=== PATIENT | male | born 1970 | race Two or more races ===

== ENCOUNTER 2018-08-21 13:30 | Emergency (ER) | payer OTHER ==
[~2018-08-21] VITALS: Ht 170.2 cm; Wt 100.2 kg
--- NOTE | 2018-08-21 13:45 | NUR ---
PT BIB RA FROM WORK C/O N/V, HYPERGLYCEMIA, AND ALTERED MENTAL STATUS. PT IS DROWSY, ORIENTED X2 ONLY. RESP EVEN UNLABORED. SKIN WARM DRY. DENIES PAIN. IN ER BED 05 ON MONITOR. IV PRESENT FROM EMS.
[2018-08-21] MEDS ORDERED: IV NS 0.9% 1,000 ML BAG IV ONE (14:00)
[2018-08-21 14:11] LABS: BASOPHILS % (AUTO) 0.5 % (0.0-2.0); EOSINOPHILS % (AUTO) 1.8 % (0.0-6.0); HEMATOCRIT 33 % (39-51); HEMOGLOBIN 11.3 g/dL (13.5-17.5); LYMPHOCYTES # (AUTO) 1.9 /CMM (0.8-4.8); LYMPHOCYTES % (AUTO) 22.3 % (20.0-44.0); MEAN CORPUSCULAR HGB CONC 34 g/dl (31.0-36.0); MEAN CORPUSCULAR VOLUME 83 fL (80-96); MONOCYTES # (AUTO) 0.4 /CMM (0.1-1.30); MONOCYTES % (AUTO) 5.1 % (2.0-12.0); NEUTROPHILS # (AUTO) 6.1 /CMM (1.8-8.9); NEUTROPHILS % (AUTO) 70.3 % (43.0-81.0); PLATELET COUNT (AUTO) 335 /CMM (150-450); RDW COEFFICIENT OF VARIATION 12.4 (11.5-15.0); RED BLOOD CELL COUNT(AUTO) 3.99 MIL/uL (4.5-6.0); WHITE BLOOD COUNT (AUTO) 8.6 K/uL (4.3-11.0)
[2018-08-21 14:20] LABS: CALCIUM, SERUM 8.5 mg/dL (8.5-10.1); CREATININE 2.6 mg/dL (0.6-1.3); POTASSIUM 3.7 mmol/L (3.5-5.1)
[2018-08-21 14:31] LABS: ALBUMIN 2.2 g/dL (3.4-5.0); BILIRUBIN,TOTAL 0.2 mg/dL (0.2-1.0); TOTAL PROTEIN, SERUM 5.7 g/dL (6.4-8.2)
--- NOTE | 2018-08-21 14:37 | NUR ---
PT NOW MARKEDLY MORE ALERT, ORIENTED X4, ABLE TO FOLLOW COMMANDS. PT WAS STILL UNABLE TO PROVIDE URINE SAMPLE VIA URINAL SO STRAIGHT CATH PERFORMED
[2018-08-21 14:48] LABS: APPEARANCE,URINE Clear (CLEAR); BILIRUBIN,URINE Negative (NEGATIVE); BLOOD, URINE Moderate Ery/uL (NEGATIVE); COLOR,URINE Yellow (YELLOW); KETONES,URINE Negative (NEGATIVE); LEUKOCYTE ESTERASE ,URINE Negative (NEGATIVE); NITRITE, URINE Negative (NEGATIVE); PROTEIN,URINE >=300 mg/dl (NEGATIVE); UGLUCOSE 500 MG/DL mg/dL (NEGATIVE); UROBILINOGEN,URINE 0.2 EU/dL (0.2)
[2018-08-21 14:55] LABS: BACTERIA,URINE Rare /HPF (None Seen); SQUAMOUS EPITHELIAL CELL,UR Rare /HPF (None Seen)
--- NOTE | 2018-08-21 15:30 | NUR ---
CALLED NURSING PIPE SMO[employer] MACHINE OFFBEARER FOR M/S BED
--- NOTE | 2018-08-21 16:54 | NUR ---
SPOKE TO ADMITTING DEPT. WE ARE CURRENTLY WAITING TO HEAR BACK FROM THE TYPIST FROM PATIENT'S INSURANCE. WILL FOLLOW UP.
[2018-08-21] MEDS ORDERED: METF-442 PO (17:04)
[2018-08-21] MEDS ORDERED: LABE100T5 PO (17:04)
[2018-08-21] MEDS ORDERED: SERT50TA12 PO (17:04)
[2018-08-21] MEDS ORDERED: ATOR10TA PO (17:04)
[2018-08-21] MEDS ORDERED: LISI10TA5 PO (17:04)
[2018-08-21] MEDS ORDERED: GABA-534 PO (17:04)
[2018-08-21] MEDS ORDERED: HYDR12.55 PO (17:04)
[2018-08-21] MEDS ORDERED: INSU100V (17:04)
--- NOTE | 2018-08-21 17:31 | NUR ---
AXEL PARKER AT BEDSIDE SPEAKING WITH PT AND . PT REMAINS A/OX4 BUT WITH OCCASIONAL MOMENTS OF DROWSINESS AND CONFUSION
[2018-08-21] MEDS ORDERED: ONDANSETRON HCL/PF 4 MG/2 ML VIAL IV STA (17:36)
[2018-08-21] MEDS ORDERED: ONDANSETRON HCL/PF 4 MG/2 ML VIAL ONE ×2 (17:44→19:31)
--- NOTE | 2018-08-21 17:50 | NUR ---
CALL [phone] EXT [phone] ASK FOR FERNIE OR YESSICA WITH RESULTS OF TROPONIN AND CXR.
--- NOTE | 2018-08-21 18:58 | NUR ---
SPOKE WITH FERNIE WITH PATIENT ACCESS AT [facility]. PROVIDED TROPONIN AND CXR RESULTS. SHE WILL CALL US BACK WITH ANYTHING FURTHER
--- NOTE | 2018-08-21 19:06 | NUR ---
RESTING QUIETLY, NAD NOTED, ALL NEEDS ATTENDED TO.
[2018-08-21] MEDS ORDERED: ONDANSETRON HCL/PF 4 MG/2 ML VIAL IV ONE (19:30)
--- NOTE | 2018-08-21 19:34 | NUR ---
NOTED PT VOMITING. ER CABLE STRETCHER AND TESTER MADE AWARE WITH ORDERS RECEIVED. WILL CARRY OUT ORDERS.
[2018-08-21] MEDS ORDERED: LABETALOL HCL (100MG) 100 MG TABLET PO STA (20:11)
--- NOTE | 2018-08-21 20:25 | NUR ---
PT ACCEPTED BY DR SELF AT [facility], BED 3203. # FOR REPORT [phone]
[2018-08-21] MEDS ORDERED: diphenhydrAMINE HCL 50 MG/ML VIAL ONE (20:30)
[2018-08-21] MEDS ORDERED: METOCLOPRAMIDE HCL 10 MG/2 ML VIAL IV ONE (20:30)
[2018-08-21] MEDS ORDERED: diphenhydrAMINE HCL 50 MG/ML VIAL IV STA (20:30)
[2018-08-21] MEDS ORDERED: METOCLOPRAMIDE HCL 10 MG/2 ML VIAL ONE (20:31)
--- NOTE | 2018-08-21 20:35 | NUR ---
NOTED PT VOMITING, ER PA MADE AWARE WITH ORDERS RECEIVED. WILL CARRY OUT ORDERS.
[2018-08-21] MEDS ORDERED: LABETALOL HCL IV 100MG VIAL ONE (20:44)
[2018-08-21] MEDS ORDERED: LABETALOL 20 MG/4 ML VIAL IV ONE (21:00)
--- NOTE | 2018-08-21 21:05 | NUR ---
PT RESTING QUIETLY, NO ACUTE DISTRESS NOTED, RESP EVEN AND UNLABORED. CALL LIGHT WITHIN REACH. PT AT BEDSIDE. WILL CONTINUE TO MONITOR PT CLOSELY.
--- NOTE | 2018-08-21 21:16 | NUR ---
SPOKE WITH ROSALIND AT [facility] TRIP#[id number]. ETA 20 MINUTES FOR ALS TRANSPORT
--- NOTE | 2018-08-21 21:32 | NUR ---
REPORT CALLED TO [facility] SPECIALIST CHAD. AWATING TRANSPORT.
[2018-08-21] MEDS ORDERED: LABETALOL 20 MG/4 ML VIAL IV STA (22:10)
--- NOTE | 2018-08-21 22:38 | NUR ---
CALLED [facility] AND WAS TOLD A NEW ETA OF 0 FOR ALS
[2018-08-21 22:59] VITALS: BP 145/99
--- NOTE | 2018-08-21 23:00 | NUR ---
REPORT GIVEN TO [facility].
== END 2018-08-21 23:02 | disposition short-term general hospital (02) ==
LOC: ER 13:32
DX: E11.65 Type 2 diabetes mellitus with hyperglycemia (principal); E11.22 Type 2 diabetes mellitus with diabetic chronic kidney disease; I12.9 Hypertensive chronic kidney disease with stage 1 through stage 4 chronic kidney disease, or unspecified chronic kidney disease; N18.9 Chronic kidney disease, unspecified; R51 Headache; Z79.4 Long term (current) use of insulin
CPT/HCPCS: 36415; 51701; 70450; 71045; 80048; 80076; 80305; 81001; 82962 ×5; 83690; 84484; 85025; 87081; 93005 ×2; 96361; 96374; 96375; 96376; 99291; J1200; J2405 ×2; J2765; J3490 ×3; J7030 ×2; 81000-TC; A4606; Z7610